=== PATIENT | male | born 2000 | race African-American/Black ===

== ENCOUNTER 2020-05-10 10:30 | Emergency (ER) | payer OTHER ==
[~2020-05-10] VITALS: Ht 172.7 cm; Wt 65.6 kg
[2020-05-10 11:55] LABS: BASO % 0.3 % (0.0-1.0); EOS # 0.1 10^3/uL (0.0-0.5); EOS % 1.6 % (0.0-3.0); HEMATOCRIT 47.7 % (42.0-52.0); HEMOGLOBIN 15.3 g/dl (13.5-17.5); LYMPH # 1.3 10^3/uL (1.5-5.0); LYMPH % 17.5 % (24.0-44.0); MEAN CORPUSCULAR HEMOGLOBIN 28.8 pg (27.0-33.0); MEAN CORPUSCULAR HGB CONC 32.1 g/dl (32.0-36.5); MEAN CORPUSCULAR VOLUME 89.7 fl (80.0-96.0); MONO # 0.5 10^3/uL (0.0-0.8); MONO % 6.4 % (2.0-8.0); NEUTROPHILS # 5.4 10^3/uL (1.5-8.5); NEUTROPHILS % 73.7 % (36.0-66.0); PLATELET COUNT, AUTOMATED 283 10^3/uL (150-450); RED BLOOD COUNT 5.32 10^6/uL (4.30-6.10); WHITE BLOOD COUNT 7.3 10^3/uL (4.0-10.0)
--- NOTE | 2020-05-10 12:25 | REP ---
INDICATION: b/l testicular pain. COMPARISON: None. TECHNIQUE: Multiple sonographic images of the scrotum bilaterally including Doppler ultrasound. FINDINGS: The right testis measures 3.99 x 1.89 x 2.9 cm The left testis measures 4.13 x 01.8 x 2.9 cm. There are no testicular masses or cysts. There is vascular flow in both testes. The Doppler resistive index in the parenchymal arteries of the right testis is 0.65 and left testis 0.57. The right epididymal head is normal size measuring 0.85 mm. There is no right epididymal head cyst or mass. The left epididymal head is normal size measuring 7.8 mm. There are 2 left epididymal head cysts measuring 4 mm and 3 mm respectively. No hydrocele is identified on the right or the left. IMPRESSION: There are no testicular masses or cysts. There is vascular flow in both testes. There are 2 small left epididymal head cysts. <Electronically signed by Kenny Garcia > 05/10/20 [id number]
[2020-05-10 12:36] LABS: CHLAMYDIA DNA AMPLIFICATION POSITIVE (NEGATIVE); GC DNA AMPLIFICATION NEGATIVE (NEGATIVE)
[2020-05-10 13:11] LABS: BLOOD UREA NITROGEN 8 MG/DL (7-18); CARBON DIOXIDE LEVEL 31 MEQ/L (21-32); CHLORIDE LEVEL 105 MEQ/L (98-107); CREATININE FOR GFR 0.84 MG/DL (0.70-1.30); GLOMERULAR FILTRATION RATE > 60.0 (>60); GLUCOSE, FASTING 70 MG/DL (70-100); POTASSIUM SERUM 4.5 MEQ/L (3.5-5.1); SODIUM LEVEL 139 MEQ/L (136-145)
[2020-05-10 13:12] LABS: ALBUMIN 4.2 GM/DL (3.2-5.2); ALT/SGPT 38 U/L (12-78); BILIRUBIN,DIRECT 0.1 MG/DL (0.0-0.2); BILIRUBIN,TOTAL 0.5 MG/DL (0.2-1.0); CALCIUM LEVEL 9.2 MG/DL (8.5-10.1); LIPASE 95 U/L (73-393); TOTAL PROTEIN 7.6 GM/DL (6.4-8.2)
[2020-05-10] MEDS ORDERED: DOXYCYCLINE HYCLATE 100MG TABLET PO ONE (14:35)
[2020-05-10] MEDS ORDERED: DOXY100C37 PO (14:39)
[2020-05-10 15:09] VITALS: BP 129/77
[2020-05-12 11:37] LABS: HEPATITIS B SURFACE ANTIBODY POSITIVE (POSITIVE)
[2020-05-12 11:46] LABS: HEPATITIS B SURFACE ANTIGEN NEGATIVE (NEGATIVE)
[2020-05-12 12:14] LABS: HEPATITIS C VIRUS ABY INDEX < 0.0 INDEX (<0.8)
[2020-05-12 12:15] LABS: HIV 1&2 SCREEN CENTAUR NEGATIVE (NEGATIVE)
== END 2020-05-10 15:27 | disposition home or self-care (01) ==
LOC: M ED 10:30
DX: A74.9 Chlamydial infection, unspecified (principal); N50.3 Cyst of epididymis; A63.0 Anogenital (venereal) warts; Z91.010 Allergy to peanuts

== ENCOUNTER 2020-10-18 23:42 | Emergency (ER) | payer OTHER ==
[~2020-10-18] VITALS: Ht 175.3 cm; Wt 61.1 kg
[~2020-10-18 23:42] MED LIST: DOXY1CAP62 PO
[2020-10-19] MEDS ORDERED: COMBIVENT RESPIMAT 100-20MCG INHALER 4GM INH STA (01:27)
[2020-10-19 01:45] LABS: BASO # 0.1 10^3/uL (0.0-0.2); BASO % 0.5 % (0.0-1.0); EOS # 0.2 10^3/uL (0.0-0.5); EOS % 1.5 % (0.0-3.0); HEMATOCRIT 38.8 % (42.0-52.0); HEMOGLOBIN 12.9 g/dl (13.5-17.5); LYMPH # 2.3 10^3/uL (1.5-5.0); MEAN CORPUSCULAR HEMOGLOBIN 28.9 pg (27.0-33.0); MEAN CORPUSCULAR HGB CONC 33.2 g/dl (32.0-36.5); MONO # 0.9 10^3/uL (0.0-0.8); MONO % 9.6 % (2.0-8.0); NEUTROPHILS # 6.3 10^3/uL (1.5-8.5); NEUTROPHILS % 64.9 % (36.0-66.0); PLATELET COUNT, AUTOMATED 333 10^3/uL (150-450); RED BLOOD COUNT 4.46 10^6/uL (4.30-6.10); WHITE BLOOD COUNT 9.8 10^3/uL (4.0-10.0)
[2020-10-19] MEDS ORDERED: VENTAER INH (02:54)
[2020-10-19 03:03] VITALS: BP 134/62
--- NOTE | 2020-10-19 03:31 | REPVR ---
PROCEDURE INFORMATION: Exam: XR Chest Exam date and time: 10/19/2020 1:57 AM Age: 20 years old Clinical indication: Fever, cough, crackles, and night sweats. TECHNIQUE: Imaging protocol: XR of the chest. Views: 2 views. COMPARISON: No relevant prior studies available. FINDINGS: Lungs: Unremarkable. No consolidation. No pulmonary edema. Pleural spaces: Unremarkable. No pleural effusion. No pneumothorax. Heart/Mediastinum: Unremarkable. No cardiomegaly. Bones/joints: Unremarkable. IMPRESSION: No acute findings. Electronically signed by: Frandy Waggoner On 10/19/2020 03:30:49 AM
== END 2020-10-19 03:04 | disposition home or self-care (01) ==
LOC: M ED 23:42
DX: R05 Cough (principal); R50.9 Fever, unspecified; R51.9 Headache, unspecified; Z20.822 Contact with and (suspected) exposure to COVID-19; J45.909 Unspecified asthma, uncomplicated; Z91.010 Allergy to peanuts
CPT/HCPCS: 36415; 71046; 80047; 85025; 94640; 99283; U0003

== ENCOUNTER 2020-10-20 21:44 | Emergency (ER) | payer OTHER ==
[~2020-10-20] VITALS: Ht 175.3 cm; Wt 61.0 kg
[~2020-10-20 21:44] MED LIST changes: +VENTAER INH
[2020-10-20 21:46] VITALS: BP 133/64
== END 2020-10-21 01:33 | disposition left against medical advice (07) ==
LOC: M ED 21:44
DX: Z53.21 Procedure and treatment not carried out due to patient leaving prior to being seen by health care provider (principal)